=== PATIENT | male | born 1980 | race Two or more races ===

== ENCOUNTER 2023-07-04 15:56 | Emergency (ER) | payer MEDICAID ==
[~2023-07-04] VITALS: Ht 172.7 cm; Wt 80.0 kg
[2023-07-04] MEDS ORDERED: METF-1211 PO (16:02)
[2023-07-04] MEDS ORDERED: INSLAN SQ (16:03)
[2023-07-04] MEDS ORDERED: LISI-892 PO (16:03)
[2023-07-04 16:20] LABS: BASOPHILS % (AUTO) 0.9 % (0.0-2.0); EOSINOPHILS % (AUTO) 1.9 % (1.0-6.0); HEMATOCRIT 44.5 % (41-53); HEMOGLOBIN 15.7 g/dL (13.5-17.5); LYMPHOCYTES # (AUTO) 1.8 K/uL (1.0-4.8); LYMPHOCYTES % (AUTO) 29.7 % (22.0-44.0); MEAN CORPUSCULAR HEMOGLOBIN 29.1 pg (26.0-34.0); MEAN CORPUSCULAR HGB CONC 35.3 G/dL (31.0-37.0); MEAN CORPUSCULAR VOLUME 83 fL (80-100); MONOCYTES # (AUTO) 0.4 K/uL (0.1-1.0); MONOCYTES % (AUTO) 6.1 % (2.0-9.0); NEUTROPHILS # (AUTO) 3.7 K/uL (1.8-7.7); NEUTROPHILS % (AUTO) 61.4 % (40.0-70.0); PLATELET COUNT (AUTO) 231 K/uL (150-450); RED BLOOD CELL COUNT(AUTO) 5.39 MIL/uL (4.50-5.90); RED CELL DISTRIBUTION WIDTH 13.2 % (11.5-14.5)
[2023-07-04 16:35] LABS: ALANINE AMINOTRANSFERASE 26 U/L (12-78); ALKALINE PHOSPHATASE 182 U/L (46-116); ANION GAP 9 mmol/L (8-16); ASPARTATE AMINOTRANSFERASE 7 U/L (15-37); BILIRUBIN,TOTAL 0.3 mg/dL (0.1-1.0); CALCIUM, TOTAL 9.5 mg/dL (8.8-10.5); CARBON DIOXIDE 27 mmol/L (22-29); CHLORIDE 94 mmol/L (98-107); CREATININE 0.98 mg/dL (0.60-1.30); GLOMERULAR FILTR. RATE CALC > 60 mL/min (>60); POTASSIUM 4.1 mmol/L (3.5-5.1); SODIUM SERUM 130 mmol/L (136-145); TOTAL PROTEIN, SERUM 8.6 g/dL (6.4-8.2); UREA NITROGEN, BLOOD 19 mg/dL (7-18)
[2023-07-04 16:37] LABS: TROPONIN I-HIGH SENSITIVITY 28 ng/L (<76)
[2023-07-04 16:45] LABS: GLUCOSE,RANDOM 488 mg/dL (70-110)
[2023-07-04] MEDS ORDERED: SODIUM CHLORIDE 0.9% 1,000 ML IV ONE (16:45)
[2023-07-04] MEDS ORDERED: INSULIN REGULAR, HUMAN 100 UNITS/ML IVP ONE (16:45)
[2023-07-04 17:51] LABS: GLUCOMETER DEV NAME(LOC) ER.6; GLUCOSE,POINT OF CARE 297 MG/DL (70-110)
[2023-07-04 18:25] LABS: TROPONIN I-HIGH SENSITIVITY 27 ng/L (<76)
[2023-07-04 18:51] LABS: GLUCOMETER DEV NAME(LOC) ER.6; GLUCOSE,POINT OF CARE 267 MG/DL (70-110)
[2023-07-04 19:13] VITALS: BP 149/92; PULSE 99; RESP 20; TEMP 98.3
== END 2023-07-04 19:20 | disposition home or self-care (01) ==
LOC: EMS 15:57
DX: F41.9 Anxiety disorder, unspecified (principal); R07.89 Other chest pain; M79.641 Pain in right hand; E11.9 Type 2 diabetes mellitus without complications; I10 Essential (primary) hypertension
CPT/HCPCS: 99285; 96374; 71045; 96361; 80053; 84484; 85025; 36415; 73110; 93005; 82962; J1815; J7030